=== PATIENT | female | born 1995 | race American Indian/Alaskan Native ===

== ENCOUNTER 2020-04-18 16:56 | Emergency (ER) | payer SELFPAY ==
[2020-04-18 17:10] VITALS: BP 118/49
--- NOTE | 2020-04-18 17:47 | Event Note ---
ED Screening Note Date of service: 04/18/20 Time: 17:46 ED Screening Note: Patient complains of nausea and vomiting and fatigue x yesterday Unsure last menstrual cycle This initial assessment/diagnostic orders/clinical plan/treatment(s) is/are subject to change based on patients health status, clinical progression and re- assessment by fellow clinical providers in the ED. Further treatment and workup at subsequent clinical providers discretion. Patient/guardian urged not to elope from the ED as their condition may be serious if not clinically assessed and managed. Initial orders include: Labs
[2020-04-18 18:07] LABS: Basophils % (Auto) 0.4 % (0.0-1.8); Eosinophils % (Auto) 0.4 % (0.0-4.3); Hematocrit 31.5 % (30.3-42.9); Hemoglobin 9.8 gm/dl (10.1-14.3); Mean Corpuscular HGB Conc 31 % (30-34); Mean Corpuscular Volume 78 fl (79-97); Monocytes # (Auto) 0.5 K/mm3 (0.0-0.8); Monocytes % (Auto) 6.8 % (0.0-7.3); Platelet Count 390 K/mm3 (140-440); Red Blood Count 4.04 M/mm3 (3.65-5.03); Red Cell Distribution Width 15.8 % (13.2-15.2)
[2020-04-18 18:15] LABS: Alanine Aminotransferase 10 units/L (7-56); Albumin 3.9 g/dL (3.9-5); BUN/Creatinine Ratio 11; Blood Urea Nitrogen 9 mg/dL (7-17); Calcium 9.4 mg/dL (8.4-10.2); Hemolysis Index 3
[2020-04-18] MEDS ORDERED: ONDANSETRON 4 MG ODT TAB PO ONE (21:42)
[2020-04-18] MEDS ORDERED: IBUPROFEN 600 MG TAB PO ONE (21:43)
[2020-04-18] MEDS ORDERED: BUTALB/ACETAMINOPHEN/CAFFEINE TAB PO ONE (21:43)
[2020-04-18] MEDS ORDERED: FAMOTIDINE 20 MG TAB PO ONE (21:43)
--- NOTE | 2020-04-18 22:37 | XRay Report ---
XR chest routine 2V INDICATION / CLINICAL INFORMATION: Fever COMPARISON: None available. FINDINGS: SUPPORT DEVICES: None. HEART / MEDIASTINUM: No significant abnormality. LUNGS / PLEURA: Lungs are clear. Costophrenic sulci are sharp. No pneumothorax. ADDITIONAL FINDINGS: No significant additional findings. IMPRESSION: 1. No acute findings. Signer Name: Doe Becerra MD Signed: 04/18/2020 10:32 PM Workstation Name: [id number]
[2020-04-18 22:43] LABS: Bacteria,Urine 1+ /HPF (Negative); Bilirubin,Urine NEG (Negative); Blood,Urine NEG (Negative); Color,Urine Yellow (Yellow); Mucus,Urine FEW /HPF
--- NOTE | 2020-04-18 23:39 | Emergency Department Report ---
ED N/V/D HPI - General Chief complaint: Nausea/Vomiting/Diarrhea Stated complaint: BODY ACHE/VOMITING/DIZZY Time Seen by Provider: 04/18/20 17:45 Source: patient Mode of arrival: Ambulatory Limitations: No Limitations - History of Present Illness Initial comments: Patient is a 24-year-old -Malagasy female with history of GERD who presents to the ED with complaint of acute onset persistent intractable nausea and vomiting with diffuse body aches and pains and lack of appetite for the last 2 days. Patient states that the last meal she took was from a restaurant 2 days ago and that since then her symptoms have worsened. Patient states that she has not been able to keep anything down or eat anything especially in the last 12 hours. Patient denies dizziness, syncope, chest pain, cough, dysuria, urinary frequency and urgency, chest pain, sore throat, headache or fever and chills, nasal and sinus congestion. MD complaint: nausea, vomiting -: Sudden, days(s) (2) Description of Vomiting: food contents, watery Associated Abdominal Pain: Yes (Mildly diffuse) Location: diffuse Radiation: none Severity: moderate Pain Scale: 3 Quality: aching, dull Consistency: intermittent Improves with: none Worsens with: none Context: possible food poisoning Associated Symptoms: denies other symptoms, myalgias, cough, fever/chills, headaches, loss of appetite, malaise, nausea/vomiting. denies: chest pain, diaphoresis, rash, dysuria, shortness of breath, syncope, weakness - Related Data Previous Rx's Medication Instructions Recorded Last Taken Type Dicyclomine [Bentyl] 20 mg PO Q6H PRN #24 tablet 04/18/20 Unknown Rx Famotidine [Pepcid] 20 mg PO BID #30 tablet 04/18/20 Unknown Rx Ibuprofen [Motrin] 800 mg PO Q8HR PRN #20 tablet 04/18/20 Unknown Rx Ondansetron [Zofran Odt] 4 mg PO Q6HR PRN #20 tab.rapdis 04/18/20 Unknown Rx cephALEXin [Keflex] 500 mg PO Q8HR #30 cap 04/18/20 Unknown Rx Allergies Allergy/AdvReac Type Severity Reaction Status Date / Time No Known Allergies Allergy Unverified 04/18/20 17:09 ED Review of Systems ROS: Stated complaint: BODY ACHE/VOMITING/DIZZY Other details as noted in HPI Constitutional: denies: chills, fever Eyes: denies: eye pain, eye discharge, vision change ENT: denies: ear pain, throat pain Respiratory: denies: cough, shortness of breath, wheezing Cardiovascular: denies: chest pain, palpitations Endocrine: no symptoms reported Gastrointestinal: nausea, vomiting. denies: abdominal pain, diarrhea Genitourinary: denies: urgency, dysuria, discharge Musculoskeletal: back pain, arthralgia, myalgia. denies: joint swelling Skin: denies: rash, lesions Neurological: headache. denies: weakness, paresthesias Psychiatric: denies: anxiety, depression Hematological/Lymphatic: denies: easy bleeding, easy bruising ED Past Medical Hx - Past Medical History Previous Medical History?: Yes Hx GERD: Yes - Surgical History Past Surgical History?: No - Social History Smoking Status: Never Smoker Substance Use Type: None - Medications Home Medications: Home Medications Medication Instructions Recorded Confirmed Last Taken Type Dicyclomine [Bentyl] 20 mg PO Q6H PRN #24 tablet 04/18/20 Unknown Rx Famotidine [Pepcid] 20 mg PO BID #30 tablet 04/18/20 Unknown Rx Ibuprofen [Motrin] 800 mg PO Q8HR PRN #20 tablet 04/18/20 Unknown Rx Ondansetron [Zofran Odt] 4 mg PO Q6HR PRN #20 tab.rapdis 04/18/20 Unknown Rx cephALEXin [Keflex] 500 mg PO Q8HR #30 cap 04/18/20 Unknown Rx ED Physical Exam - General Limitations: No Limitations General appearance: alert, in no apparent distress - Head Head exam: Present: atraumatic, normocephalic, normal inspection - Eye Eye exam: Present: normal appearance, PERRL, EOMI Pupils: Present: normal accommodation - ENT ENT exam: Present: normal exam, normal orophraynx, mucous membranes moist, TM's normal bilaterally, normal external ear exam - Neck Neck exam: Present: normal inspection, full ROM - Respiratory Respiratory exam: Present: normal lung sounds bilaterally. Absent: respiratory distress, wheezes, rales, rhonchi, stridor, chest wall tenderness, accessory muscle use, decreased breath sounds - Cardiovascular Cardiovascular Exam: Present: regular rate, normal rhythm, normal heart sounds. Absent: systolic murmur, diastolic murmur, rubs, gallop - GI/Abdominal GI/Abdominal exam: Present: soft, normal bowel sounds. Absent: distended, tenderness, guarding, rebound, hyperactive bowel sounds, hypoactive bowel sounds - Extremities Exam Extremities exam: Present: normal inspection, full ROM, normal capillary refill - Back Exam Back exam: Present: normal inspection, full ROM. Absent: tenderness, CVA tenderness (R), CVA tenderness (L), muscle spasm, paraspinal tenderness - Neurological Exam Neurological exam: Present: alert, oriented X3, CN II-XII intact, normal gait, reflexes normal - Psychiatric Psychiatric exam: Present: normal affect, normal mood - Skin Skin exam: Present: warm, dry, intact, normal color. Absent: rash ED Course Vital Signs 04/18/20 17:09 Temperature 98.1 F Pulse Rate 67 Respiratory 18 Rate Blood Pressure 118/49 [Right] O2 Sat by Pulse 98 Oximetry ED Medical Decision Making - Lab Data Result diagrams: 04/18/20 17:16 04/18/20 17:16 - Radiology Data Radiology results: report reviewed, image reviewed Findings [facility] [address] [place] [address] XRay Report Signed Patient: KEIRA VICKERS MR#: [id number] : 1995 Acct:[id number] Age/Sex: 24 / F ADM Date: 04/18/20 Loc: ED Attending Dr: Ordering Physician: YVES HALEY Date of Service: 04/18/20 Procedure(s): XR chest routine 2V Accession Number(s): [id number] cc: YVES HALEY Fluoro Time In Minutes: XR chest routine 2V INDICATION / CLINICAL INFORMATION: Fever COMPARISON: None available. FINDINGS: SUPPORT DEVICES: None. HEART / MEDIASTINUM: No significant abnormality. LUNGS / PLEURA: Lungs are clear. Costophrenic sulci are sharp. No pneumothorax. ADDITIONAL FINDINGS: No significant additional findings. IMPRESSION: 1. No acute findings. Signer Name: Doe Becerra MD Signed: 04/18/2020 10:32 PM Workstation Name: [id number] Transcribed By: CS Dictated By: Doe Becerra MD Electronically Authenticated By: Doe Becerra MD Signed Date/Time: 04/18/202231 DD/ 31 TD/TT: - Medical Decision Making This is a 24-year-old -Malagasy female with history of GERD who presents to the ED with complaint of acute onset persistent intractable nausea and vomiting with diffuse body aches and pains and lack of appetite for the last 2 days. Patient states that the last meal she took was from a restaurant 2 days ago and that since then her symptoms have worsened. Patient states that she has not been able to keep anything down or eat anything especially in the last 12 hours. In the ED, patient is alert and oriented x3 and is not in any distress. Patient was treated in the ED for nausea and vomiting and pain. Chest x-ray shows no acute cardiopulmonary abnormalities or pneumonitis. Lab test results were reviewed and are all nonactionable except for mild urinary tract infection in urinalysis. On reevaluation, patient's pain is well controlled medications. Patient has not had any nausea or vomiting in the ED. Patient was discharged home on medications and advised to follow-up with her primary care physician in 5 to 7 days for reevaluation while maintaining a clear liquid diet for 12 to 24 hours. Patient was advised return to the ED immediately if symptoms get worse. - Differential Diagnosis Gastroenteritis; Dehydration; viral syndrome; UTI; Flu Critical care attestation.: If time is entered above; I have spent that time in minutes in the direct care of this critically ill patient, excluding procedure time. ED Disposition Clinical Impression: Nausea and vomiting in adult patient, Viral gastroenteritis, Acute urinary tract infection Disposition: - TO HOME OR SELFCARE Is pt being admited?: No Does the pt Need Aspirin: No Condition: Stable Instructions: Viral Gastroenteritis, Adult, [id number], Nausea and Vomiting, Adult, [id number] Additional Instructions: Your symptoms are likely due to a viral syndrome as a result of food poisoning possibly. Therefore maintain a clear liquid diet for 12 to 24 hours, drink plenty of fluids and follow-up with your primary care physician in 3 to 5 days for reevaluation. Return to the ED immediately if symptoms get worse. Prescriptions: Dicyclomine [Bentyl] 20 mg PO Q6H PRN #24 tablet PRN Reason: Abdominal pain cephALEXin [Keflex] 500 mg PO Q8HR #30 cap Ibuprofen [Motrin] 800 mg PO Q8HR PRN #20 tablet PRN Reason: Pain , Severe (7-10) Famotidine [Pepcid] 20 mg PO BID #30 tablet Ondansetron [Zofran Odt] 4 mg PO Q6HR PRN #20 tab.rapdis PRN Reason: Nausea Referrals: [facility] [Provider Group] - 7-10 days Forms: Work/School Release Form(ED) Time of Disposition: 23:37 Print Language: BAHAMIAN
== END 2020-04-18 23:55 | disposition home or self-care (01) ==
LOC: ED 16:56
DX: N39.0 Urinary tract infection, site not specified (principal); A08.4 Viral intestinal infection, unspecified; R11.2 Nausea with vomiting, unspecified; K21.9 Gastro-esophageal reflux disease without esophagitis; Z79.899 Other long term (current) drug therapy
CPT/HCPCS: 36415; 71046; 80053; 81001; 83690; 84702; 85025; Q0162

== ENCOUNTER 2021-10-31 09:34 | Emergency (ER) | payer BC, MEDICAID ==
[2021-10-31 10:01] VITALS: BP 139/62
--- NOTE | 2021-10-31 10:31 | XRay Report ---
CHEST 2 VIEWS INDICATION / CLINICAL INFORMATION: cough / sob. COMPARISON: 04/18/2020 FINDINGS: SUPPORT DEVICES: None. HEART / MEDIASTINUM: No significant abnormality. LUNGS / PLEURA: No significant pulmonary or pleural abnormality. No pneumothorax. ADDITIONAL FINDINGS: No significant additional findings. IMPRESSION: 1. No acute findings. Signer Name: Willy Bass MD Signed: 10/31/2021 10:27 AM Workstation Name: [id number]
[2021-10-31] MEDS ORDERED: predniSONE 20 MG TAB PO ONE (10:45)
[2021-10-31] MEDS ORDERED: ALBUTEROL 2.5 MG/3 ML NEBU IH ONE (10:45)
--- NOTE | 2021-10-31 10:46 | Emergency Department Report ---
Minor Respiratory - HPI Chief Complaint: Upper Respiratory Infection Stated Complaint: CHEST PAIN/SHORTNESS OF BREATH Time Seen by Provider: 10/31/21 10:45 Duration: 2 Days Pain Location: Chest Severity: mild Minor Respiratory: Yes Able to Tolerate Fluids, Yes Shortness of Breath, No Rhinorrhea, No Sore Throat, No Ear Pain, No Cough, No Sick Contacts, No Hemoptysis, No Chest Pain, No Fever Other History: Patient is a 25-year-old female that comes to the emergency room with cold cough congestion. She has a child that has bronchitis. Patient is asthmatic. She denies purulent sputum. She denies fever or chills. She is on a home nebulizer but is out of her medications. She did not see her PCP. She is ambulatory, nontoxic [id number] Review of Systems ROS: Stated complaint: CHEST PAIN/SHORTNESS OF BREATH Other details as noted in HPI Comment: All other systems reviewed and negative ED Past Medical Hx - Past Medical History Previous Medical History?: Yes Hx GERD: Yes Hx Asthma: Yes - Surgical History Past Surgical History?: Yes - Family History Family history: no significant - Social History Smoking Status: Never Smoker Substance Use Type: None - Medications Home Medications: Home Medications Medication Instructions Recorded Confirmed Last Taken Type ALBUTEROL NEB's [Proventil 0.083% 2.5 mg IH TID PRN #1 box 10/31/21 Unknown Rx NEBS] Cetirizine HCl [ZyrTEC] 10 mg PO DAILY #30 capsule 10/31/21 Unknown Rx Fluticasone [Flonase] 1 spray NS QDAY #1 bottle 10/31/21 Unknown Rx predniSONE [Deltasone] 20 mg PO DAILY #5 tablet 10/31/21 Unknown Rx Minor Respiratory Exam - Exam General: Vital signs noted. No distress. Alert and acting appropriately. HEENT: Yes Moist Mucous Membranes, No Pharyngeal Erythema, No Pharyngeal Exudates, No Rhinorrhea, No Conjuctival Injection, No Frontal Tenderness, No Maxillary Tenderness Ear: Neither TM Bulge, Neither TM Erythema, Neither EAC Pain, Neither EAC Discharge Neck: Yes Supple, No Adenopathy Lungs: Yes Good Air Exchange, Yes Wheezes, No Ronchi, No Stridor, No Cough, No Labored Respirations, No Retractions, No Use of Accessory Muscles, No Other Abnormal Lung Sounds Heart: Yes Regular, No Murmur Abdomen: Yes Normal Bowel Sounds, No Tenderness, No Peritoneal Signs Skin: No Rash, No Edema Neurologic: Alert and oriented, no deficits. Musculoskeletal: Unremarkable. ED Course Vital Signs 10/31/21 09:57 Temperature 98.9 F Respiratory 14 Rate Blood Pressure 139/62 O2 Sat by Pulse 100 Oximetry ED Medical Decision Making - Radiology Data Radiology results: report reviewed, image reviewed NAP - Medical Decision Making Vital Signs 10/31/21 09:57 Temperature 98.9 F Respiratory 14 Rate Blood Pressure 139/62 O2 Sat by Pulse 100 Oximetry PREDNISONE PO AND DUONEB X-ray with no acute process. No indication for antibiotics at this time. Patient ambulatory, nontoxic [id number]. Patient being discharged home with discharge plan of care including diet, activity medications and follow-up. - Differential Diagnosis RO PNA/ASTHMA AE/ COVID Critical care attestation.: If time is entered above; I have spent that time in minutes in the direct care of this critically ill patient, excluding procedure time. ED Disposition Clinical Impression: Asthma with acute exacerbation Qualifiers: Asthma severity: mild Asthma persistence: intermittent Qualified Code(s): J45.21 - Mild intermittent asthma with (acute) exacerbation Disposition: 01 HOME / SELF CARE / HOMELESS Is pt being admited?: No Does the pt Need Aspirin: No Condition: Stable Instructions: Asthma, Adult Additional Instructions: MEDS ORDERED MOTRIN OR TYLENOL FOR PAIN STAY WELL HYDRATED FOLLOW UP WITH PCP IN 48-72 HOURS FOR RECHECK REFERRAL BELOW Prescriptions: predniSONE [Deltasone] 20 mg PO DAILY #5 tablet Fluticasone [Flonase] 1 spray NS QDAY #1 bottle ALBUTEROL NEB's [Proventil 0.083% NEBS] 2.5 mg IH TID PRN #1 box PRN Reason: Wheezing Cetirizine HCl [ZyrTEC] 10 mg PO DAILY #30 capsule Referrals: DODIE BETTS MD [Staff Physician] - 3-5 Days Forms: Work/School Release Form(ED) Time of Disposition: 10:51
== END 2021-10-31 12:05 | disposition home or self-care (01) ==
LOC: ED 09:34
DX: J45.901 Unspecified asthma with (acute) exacerbation (principal); K21.9 Gastro-esophageal reflux disease without esophagitis; Z98.890 Other specified postprocedural states
CPT/HCPCS: 71046; 94640; 99283